=== PATIENT | male | born 1990 | race Caucasian/White ===

== ENCOUNTER 2017-12-02 13:46 | Inpatient (IN) ==
[2017-12-02] MEDS ORDERED: SALINE FLUSH 10ml SYRINGE IVF PRN (13:59)
--- NOTE | 2017-12-02 14:01 | Emergency Department Report ---
General Adult HPI - General Stated complaint: need sist removed Time Seen by Provider: 12/02/17 13:58 Source: patient, family Mode of arrival: ambulatory Limitations: no limitations - History of Present Illness HPI narrative: Patient is a 27-year-old male seen in the emergency department for evaluation of infected pilonidal cyst. Patient was originally evaluated on Thursday 4 days ago, at that time patient had pain and swelling to the gluteal fold. Pilonidal cyst/abscess was opened in the emergency department with purulent material drained. Cavity was washed out, patient was started on ciprofloxacin and clindamycin due to MRSA. Patient continuing to have pain, fevers getting worse. Patient contacted the surgeon who did his knee surgery 2 weeks ago, who is concerned about seeding of material in the knee. He recommend he come back to the ER for evaluation. On arrival patient is tachycardic at 125 with purulent drainage. - Related Data Home Medications Medication Instructions Recorded Confirmed Aspirin 81 mg PO DAILY 11/28/17 12/02/17 Ciprofloxacin [Cipro 500 mg] 500 mg PO BID 12/02/17 12/02/17 Clindamycin [Cleocin] 300 mg PO QID 12/02/17 12/02/17 Oxycodone/Apap 10/325 [Percocet 1 - 2 tab PO Q6H PRN 12/02/17 12/02/17 10/325] Allergies Allergy/AdvReac Type Severity Reaction Status Date / Time azithromycin [From Zithromax] Allergy Rash Verified 12/02/17 14:13 Review of Systems Constitutional: Reports: fever. Denies: chills, weakness Eyes: Denies: eye pain ENT: Denies: ear pain, throat pain, dental pain Cardiovascular: Denies: chest pain, palpitations, dyspnea on exertion Respiratory: Denies: cough, dyspnea, wheezes Gastrointestinal: Denies: abdominal pain, nausea, vomiting Genitourinary: Denies: dysuria, frequency Musculoskeletal: Denies: back pain Neurological: Denies: headache Psychiatric: Denies: anxiety PFSH Patient Stated Medical History Asthma Yes: A CHILD MRSA Yes Clinic Medical History (Last Updated 11/28/17 @ 11:30 by Hoda Ocampo LPN) Asthma (Resolved Medical) Surgical History: *Right Knee surgery x 5. *Left Knee surgery x 2 Family History: Family History (Last Updated 11/28/17 @ 11:31 by Hoda Ocampo LPN) Mother High blood pressure Father Sleep apnea - Social History Smoking status: Never smoker Substance use type: does not use Alcohol intake: current Alcohol intake frequency: holidays/special occasions only Physical Exam - Limitations Limitations: no limitations - General General appearance: alert - Eye Eye exam: Present: PERRL, EOMI - ENT ENT exam: Present: normal oropharynx - Neck Neck exam: Present: trachea midline - Chest Chest inspection: Present: symmetric chest wall rise. Absent: tenderness - Respiratory Respiratory exam: Present: normal lung sounds bilaterally. Absent: respiratory distress, wheezes, stridor - Cardiovascular Cardiovascular exam: Present: normal rhythm, tachycardia, normal heart sounds - Abdominal Exam Abdominal exam: Present: soft, normal bowel sounds. Absent: distention, tenderness - Rectal Exam Rectal exam: Present: other (patient has large area of erythema with purulent material draining from 2 spots as well as incision line from previous I and D with increasing erythema) - Skin Skin exam: Present: warm, dry - Neurological Exam Neurological exam: Present: alert, oriented X3 - Psychiatric Psychiatric exam: Present: normal affect, normal mood Course Vital Signs Temperature 100.0 F 12/02/17 13:55 Pulse Rate 124 H 12/02/17 13:55 Respiratory Rate 20 12/02/17 13:55 Blood Pressure 127/64 12/02/17 13:55 Pulse Oximetry 98 12/02/17 13:55 Temperature 100.0 F 12/02/17 13:55 Pulse Rate 124 H 12/02/17 13:55 Respiratory Rate 20 12/02/17 13:55 Blood Pressure 127/64 12/02/17 13:55 Pulse Oximetry 98 12/02/17 13:55 Medical Decision Making - MDM Narrative Medical decision making narrative: Discuss case with Dr. Fierro, he would request admit to the hospitalist service for IV antibiotics and by mouth he will evaluate. Discuss case with Dr. Hogan, she will admit, start Zosyn, vancomycin - Lab Data Lab results reviewed: Yes: I reviewed the patient's lab results. Result diagrams: 12/02/17 14:08 12/02/17 14:08 Lab Results 12/02/17 Range/Units 14:08 WBC 10.6 (4.5-11.0) T/MM3 RBC 4.37 L (4.50-5.90) M/MM3 Hgb 13.2 L (13.5-17.5) GM/DL Hct 39.2 L (41-53) % MCV 89.7 (80-100) UM3 MCH 30.2 (26-34) UUG MCHC 33.7 (31-37) GM/DL RDW Std Deviation 37.6 (36.9-50.2) FL Plt Count 272 (130-400) T/MM3 MPV 9.0 L (9.4-12.4) UM3 Immature Gran % (Auto) 0.2 (0.0-0.5) % Neut % (Auto) 67.7 H (33-66) % Lymph % (Auto) 22.8 L (23-45) % [place] % (Auto) 6.6 (0-9.0) % Eos % (Auto) 2.5 (0-4) % Baso % (Auto) 0.2 (0-2) % Neut # (Auto) 7.2 (1.8-7.7) T/MM3 Lymph # (Auto) 2.4 (1-4.8) T/MM3 [place] # (Auto) 0.7 (0-0.8) T/MM3 Eos # (Auto) 0.3 (0-0.5) T/MM3 Baso # (Auto) 0.0 (0-0.2) T/MM3 Abs Immat Gran (auto) 0.02 (0.00-0.03) T/MM3 Disposition Clinical Impression: Infected pilonidal cyst, Abscess Disposition: 02 To [facility] Condition: Stable Prescriptions: No Action Aspirin 81 mg PO DAILY Oxycodone/Apap 10/325 [Percocet 10/325] 1 - 2 tab PO Q6H PRN PRN Reason: Pain Clindamycin [Cleocin] 300 mg PO QID Ciprofloxacin [Cipro 500 mg] 500 mg PO BID Time of Disposition: 14:23 - Seen By: physician
[2017-12-02] MEDS ORDERED: LEVOFLOXACIN PB 750 MG/150 ML BAG IV SCH (14:15)
[2017-12-02] MEDS: NS 1,000 ML IV SCH ×2 (14:18→22:43)
[2017-12-02] MEDS ORDERED: PIPERACILLIN/TAZOBACTAM 4.5 GM in NS 100 ML IV ONE (14:19)
--- NOTE | 2017-12-02 15:04 | History & Physical Report ---
History of Present Illness Date: 12/02/17 Chief complaint: Fever, Pilonidal cyst drainage HPI: Tucker is a 27 yr old male who presents to the emergency room today for evaluation of pilonidal cyst. He initially was seen in the emergency room on Thursday11/28/17 at which time. I&D was performed revealing purulent drainage. He was started on oral Cipro and clindamycin and discharged home. For the next 4 days he continued to have fevers with ongoing drainage. Today he returned to the ER for re-evaluation. On arrival he was found to be tachycardic with a heart rate of 124, temperature 100.0, otherwise unremarkable. Basic labs were obtained CBC overall unremarkable. Chemistry panel reveled sodium of 145, otherwise negative. Venous lactate 1.1. Area of Erythema at the gluteal fold has increased significantly compared to 4 days ago. Given worsening symptoms, failed outpatient treatment, Hospitalist services were contacted and accepted patient for inpatient admission. Dr. Fierro was contacted for further surgical evaluation and recommendations. Patient had surgery to right knee on 11/21/17 under the care of Dr Gómez Shah in [place]. He reports he did have some donor tissue placed however no metal placement. Review of Systems - Constitutional Constitutional: Present: chills, fever(s), headache(s) - Musculoskeletal Musculoskeletal: Present: other (Pain at the gluteal fold location) Past Medical History Medical History: Medical History (Last Updated 12/02/17 @ 15:07 by Vanessa Ramirez APRN) Asthma Medical History Updates: Hx MRSA in toe infection Surgical History: *Right Knee surgery x 5. 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 Postoperatively Medications Home Medications Medication Instructions Recorded Confirmed Type Aspirin 81 mg PO DAILY 11/28/17 12/02/17 History Ciprofloxacin [Cipro 500 mg] 500 mg PO BID 12/02/17 12/02/17 History Clindamycin [Cleocin] 300 mg PO QID 12/02/17 12/02/17 History Oxycodone/Apap 10/325 [Percocet 1 - 2 tab PO Q6H PRN 12/02/17 12/02/17 History 10/325] Allergies Allergy/AdvReac Type Severity Reaction Status Date / Time azithromycin [From Zithromax] Allergy Rash Verified 12/02/17 14:13 Exam Vital Signs: Temperature 100.3 F 12/02/17 14:33 Pulse Rate 110 H 12/02/17 14:33 Respiratory Rate 16 12/02/17 14:33 Blood Pressure 130/76 12/02/17 14:33 Pulse Oximetry 98 12/02/17 14:33 - Constitutional Present: no acute distress, well nourished, well developed - Routine HEENT Exam Eye: Present: EOMI ENT: Present: mucous membranes moist, dentition normal - Routine Respiratory Exam Present: CTA bilaterally. Absent: wheezes - Routine Cardiovascular Exam Present: RRR. Absent: murmur - Routine Abdominal Exam Present: soft, normoactive bowel sounds, non distended. Absent: tenderness - Routine Extremities Exam Present: normal capillary refill - Routine Back/Spine/Pelvis Exam Back image: 1 - Erythema, purulent drainage - Routine Skin Exam Present: intact, erythema, dry, warm - Routine Neurological Exam Present: alert, oriented X3, CN II-XII intact, moving all extremities - Routine Psychiatric Exam Present: normal affect, normal thought process, cooperative Results - Labs CBC & Chem 7: 12/02/17 14:08 12/02/17 14:08 Assessment and Plan (1) Infected pilonidal cyst Current visit: Yes Status: Acute Assessment and Plan: Impression Infected pilonidal cyst- failed outpatient treatment Tachycardia Hypernatremia Status post right knee surgery Hx of MRSA infection Hx Asthma as a child Plan Admit patient as an inpatient given worsening pilonidal cyst with drainage despite outpatient treatment. Venous lactate was negative initially. Blood cultures were obtained. Patient was started on Zosyn in the emergency room Will continue with IV Zosyn and vancomycin for antimicrobial coverage. Hx of MRSA infection NPO currently until evaluated by Dr Fierro Consultation placed to Dr Fierro for further surgical evaluation and recommendations. NS at 125 ml/hr for hydration Percocet or Morphine as needed for pain. Will need to also control post-op right knee pain Zofran available as needed for nausea It appears patient is taking aspirin 81 mg daily at home-this may be postoperative anticoagulation. Will resume once ongoing plan is confirmed. SCD for DVT prophylaxis Repeat venous lactate at 1830 as per sepsis protocol, we'll recheck CBC and BMP tomorrow morning to follow blood counts, renal function and electrolytes Will discuss further orders and plan of care with attending, Dr. Mejia At time of discharge medical care will return to primary care provider, PCP in [place] or Orthopedics Dr Gómez Shah DVT Prophylaxis: SCD's Resuscitation Status: Full Code - Time spent with patient Time with patient PN: 50 minutes - Physician Narrative Physician: Isabel Mejia MD Narrative: Date: 12/02/17 Time: 1639 Mr. Hutton was interviewed and examined by me. Mom and dad are both in the room. He is resting comfortably. He is having some pain on his coccyx area. He has been having intermittent fever as well as chills. He denies lightheadedness or dizziness. He denies any problems with shortness of breath, tips exertion, PND or orthopnea. He denies any chest pain, pressure or tightness. He denies palpitations. He denies any nausea or vomiting. He has had some constipation due to the pain pills from his knee but he has started taking senna with improvement. He denies any black tarry stools or bloody stools. He denies any genitourinary symptoms. He does have minimal pain on that right knee. He is in a groin to ankle splint and the right knee has an reynaldo wrap around it. Dr. Shah recommended no one remove this until seen in follow-up by himself. The parents were concerned that the name may be a source of infection but I reassured them that it is unlikely to have 2 sources of infection and we clearly have one source identified. I do not feel any major swelling in that right knee through the bandage. His pain in that knee is only minimal compared to the pain in his coccyx. PE: Gen: alert and oriented. NAD Skin: warm and dry HEENT: NC/AT PERRL, EOMI, Sclera, lids and conjunctiva wnl. MMM. OP clear. Neck: No JVD, Carotids 2+ without bruits Lungs: clear. No rales, rhonchi or wheezes CV: regular. No murmur, rub or gallop Abd: soft. +BS. NT/ND MS: Trace edema in distal RLE. Good strength and ROM in left LE and bilateral UEs. Neuro: No focal deficits Psy: Appropriate mood and affect Assessment and Plan: (1) Infected pilonidal cyst - failed outpatient treatment - Associated Tachycardia - Vanco and zosyn initiated - Blood Cx drawn - Dr. Fierro to see this evening, possible I&D today - IV morphine for pain management. (2) Hypernatremia -Likely due to dehydration -IVF (3) Status post right knee surgery -Appears stable -On ASA for post op protection-hold for now but resume helen (4) Hx of MRSA infection (5) Prophylaxis -SCDs At time of discharge medical care will return to primary care provider, PCP in [place] and Orthopedics Dr Gómez Shah Pt discussed with Vanessa Ramirez APRN. Plan discussed and developed together. I independently interviewed and examined pt. My documentation is above. Hospital Course Summary Disclaimer: The visit summary below is not to be considered part of the above Progress Note. Hospital Course: Impression Infected pilonidal cyst- failed outpatient treatment Tachycardia Hypernatremia Status post right knee surgery Hx of MRSA infection Hx Asthma as a child Plan Admit patient as an inpatient given worsening pilonidal cyst with drainage despite outpatient treatment. Venous lactate was negative initially. Blood cultures were obtained. Patient was started on Zosyn in the emergency room Will continue with IV Zosyn and vancomycin for antimicrobial coverage. Hx of MRSA infection NPO currently until evaluated by Dr Fierro Consultation placed to Dr Fierro for further surgical evaluation and recommendations. NS at 125 ml/hr for hydration Percocet or Morphine as needed for pain. Will need to also control post-op right knee pain Zofran available as needed for nausea It appears patient is taking aspirin 81 mg daily at home-this may be postoperative anticoagulation. Will resume once ongoing plan is confirmed. SCD for DVT prophylaxis Repeat venous lactate at 1830 as per sepsis protocol, we'll recheck CBC and BMP tomorrow morning to follow blood counts, renal function and electrolytes Will discuss further orders and plan of care with attending, Dr. Mejia At time of discharge medical care will return to primary care provider, PCP in [place] or Orthopedics Dr Gómez Shah
[2017-12-02 15:07] VITALS: BMI 34.4
[2017-12-02] MEDS ORDERED: MORPHINE SULFATE 2mg INJ IVP PRN (15:14)
[2017-12-02] MEDS ORDERED: ONDANSETRON 4 MG/2 ML INJECTION IVP PRN ×2 (15:14→21:37)
[2017-12-02] MEDS ORDERED: VANCOMYCIN - PHARMACY CONSULT MC ONE (16:44)
--- NOTE | 2017-12-02 17:15 | Pharmacy Consult-Antibiotics ---
Pharmacy Consult-Vancomycin - Laboratory Information WBC 10.6 T/MM3 (4.5-11.0) 12/02/17 14:08 BUN 12.0 MG/DL (9-20) 12/02/17 14:08 Creatinine 0.8 mg/dL (0.8-1.5) 12/02/17 14:08 - Consult Information Consult noted by Dr Mejia to start vancomycin therapy for Mr Hutton. Mr Hutton is 27 years old and weighs 135.3kg. He has excellent renal function ( Crcl calulated at 200 ml/min). ER vancomycin 2000mg dose given at 1546 today. Will start vancomycin 1500mg IV q6h at 2300 tonight. A trough is ordered tomorrow afternoon, will evaluate an adjust dose if needed. Thank you.
--- NOTE | 2017-12-02 17:51 | General Surgery Consult Note ---
Consult date: 12/02/17 Attending Physician: Isabel Mejia MD [facility] Clinic Medical History (Last Updated 12/02/17 @ 15:07 by Vanessa Ramirez APRN) Asthma (Resolved Medical) Medical History Updates: Hx MRSA in toe infection Surgical History: *Right Knee surgery x 5. *Left Knee surgery x 2 Family History: Family History (Last Updated 11/28/17 @ 11:31 by Hoda Ocampo LPN) Mother High blood pressure Father Sleep apnea - Social History Smoking status: Never smoker Substance use type: does not use Alcohol intake: current Alcohol intake frequency: holidays/special occasions only Current occupational status: employed ([employer]) Medications Home Medications Medication Instructions Recorded Confirmed Type Aspirin 81 mg PO DAILY 11/28/17 12/02/17 History Ciprofloxacin [Cipro 500 mg] 500 mg PO BID 12/02/17 12/02/17 History Clindamycin [Cleocin] 300 mg PO QID 12/02/17 12/02/17 History Oxycodone/Apap 10/325 [Percocet 1 - 2 tab PO Q6H PRN 12/02/17 12/02/17 History 10/325] Allergies Allergy/AdvReac Type Severity Reaction Status Date / Time azithromycin [From Zithromax] Allergy Rash Verified 12/02/17 14:13 Review of Systems 10-point ROS: negative except for HPI and the following: - General General: Present: fever - Musculoskeletal Musculoskeletal: Present: joint pain (recent knee surgery), other (Knee brace on right leg) - Vital Signs Last Vital Signs Temp 99.1 F 12/02/17 15:04 Pulse 111 H 12/02/17 15:04 Resp 16 12/02/17 15:04 BP 127/65 12/02/17 15:04 Pulse Ox 99 12/02/17 15:04 - Laboratory Result Diagrams: 12/02/17 14:08 12/02/17 14:08
[2017-12-02] MEDS ORDERED: BUPIVACAINE 0.25%/EPI 1:200,000 30ml SDV ONE (18:50)
--- NOTE | 2017-12-02 20:09 | Anesthesia Preoperative Report ---
Anesthesia Preoperative Record - Date and Time Date: 12/02/17 Preoperative Diagnosis: Pilonidal Cyst Proposed Procedure: Excision of Pilonidal cyst NPO Since Date: 12/02/17 NPO Since Time: 07:00 Allergies/Adverse Reactions: Allergies Allergy/AdvReac Type Severity Reaction Status Date / Time azithromycin [From Zithromax] Allergy Rash Verified 12/02/17 14:13 - Vital Signs Vital Signs: Temperature 99.1 F 12/02/17 15:04 Pulse Rate 105 H 12/02/17 15:45 Respiratory Rate 20 12/02/17 15:45 Blood Pressure 127/65 12/02/17 15:04 Pulse Oximetry 97 12/02/17 15:45 Height and Weight: Height 1.98 m Weight 135.3 kg Body Mass Index 34.4 - Medications Inpatient Medications: Current Medications Sodium Chloride (Normal Saline) 1,000 mls @ 125 mls/hr IV .Q8H ANASTACIA Last Infusion: 12/02/17 17:46 Dose: 125 mls/hr Piperacillin Sod/Tazobactam (Sod 3.375 gm/ Sodium Chloride) 100 mls @ 200 mls/ hr IV Q6H ANASTACIA Vancomycin HCl 1,500 mg/ (Sodium Chloride) 500 mls @ 300 mls/hr IV Q6H ANASTACIA Morphine Sulfate (Morphine Sulfate Inj) 2 mg IVP Q3-4HR PRN PRN Reason: Pain Ondansetron HCl (Zofran) 4 mg IVP Q6H PRN PRN Reason: Nausea &/or vomiting Oxycodone/Acetaminophen (Percocet 10/325) 1 - 2 tab PO Q6H PRN PRN Reason: Pain Sodium Chloride (Iv Flush) 10 - 80 ml IVF PRN PRN PRN Reason: Flushing Last Admin: 12/02/17 14:03 Dose: 10 ml Home Medications: Home Medications Medication Instructions Recorded Confirmed Type Aspirin 81 mg PO DAILY 11/28/17 12/02/17 History Ciprofloxacin [Cipro 500 mg] 500 mg PO BID 12/02/17 12/02/17 History Clindamycin [Cleocin] 300 mg PO QID 12/02/17 12/02/17 History Oxycodone/Apap 10/325 [Percocet 1 - 2 tab PO Q6H PRN 12/02/17 12/02/17 History 10/325] Is Patient on Beta Katty?: No - Medical History Respiratory: Reports: Asthma ( A CHILD) - Surgical History Musculoskeletal Surgery/Tx: Reports: Knee Arthroscopy (LEFT,RIGHT) Anesthesia Reactions: None Hx Family Anesthesia Reaction: No History of Motion Sickness: No - Social History Smoking Status: Never smoker Hx Chewing Tobacco Use: No Second Hand Exposure: No Substance Use Type: does not use Alcohol Intake: current Alcohol Intake Frequency: holidays/special occasions only - Pertinent Findings EKG: Sinus Rhythm - Physical Exam Respiratory Exam: Present: lungs clear Cardiovascular Exam: Present: regular rate and rhythm - Airway Assessment Mallampati Score: II TMD: 3 Fingerbreadths Neck Extension: good Overall Assessment: no airway concerns - ASA ASA Score: 2 - Plan Anesthesia: General Inhalation Gases - Discussion Discussion: Discussed risks/options/alternatives of anesthesia and questions answered. Patient consents. Nursing pain assessment noted. Present for Discussion: family member Attestation Statement: Prior to the delivery of any anesthetic medication, I examined the patient, developed the plan, obtained the patient's consent and discussed the risk and benefits of the procedure with the patient/guardian. - Additional Information Seen by Anesthesia: Yes
[2017-12-02] MEDS ORDERED: FentaNYL 250 MCG/5 ML INJECTION ONE (20:47)
[2017-12-02] MEDS ORDERED: BUPIVACAINE 0.25%/EPI 1:200,000 30ml SDV ID ONE (21:10)
[2017-12-02] MEDS: PIPERACILLIN/TAZOBACTAM 3.375 GM in NS 100 ML IV SCH (21:10)
[2017-12-02] MEDS ORDERED: KETOROLAC 30 MG/ML INJECTION IVP PRN (21:21)
[2017-12-02] MEDS ORDERED: IBUPROFEN 800 MG TABLET PO PRN (21:21)
[2017-12-02] MEDS ORDERED: SUGAMMADEX 200mg/2ml INJECTION IVP ONE (21:30)
[2017-12-02] MEDS ORDERED: DEXAMETHASONE 4 MG/ML INJECTION ONE (21:30)
[2017-12-02] MEDS ORDERED: ONDANSETRON 4 MG/2 ML INJECTION ONE (21:30)
[2017-12-02] MEDS ORDERED: FentaNYL 100 MCG/2 ML INJECTION IVP PRN (21:37)
[2017-12-02] MEDS ORDERED: METOCLOPRAMIDE 10mg/2ml INJECTION IVP PRN (21:37)
[2017-12-02] MEDS ORDERED: HYDROMORPHONE 2 MG/ML INJECTION IVP PRN (21:37)
--- NOTE | 2017-12-02 21:47 | General Surgery Procedure Note ---
Date of Procedure: 12/02/17 Surgeon: [employer] Supervisor: Bill Alejandra APRN Postoperative Diagnosis: Infected Pilonidal disease with abscess Procedure: Incision, drainage and debridement of infected pilonidal cyst disease Estimated Blood Loss: See Anesthesia Record.
[2017-12-02] MEDS: MORPHINE SULFATE 4mg INJECTION IVP PRN (22:52)
[2017-12-03] MEDS: Oxycodone/Apap 10/325 1 TAB PO PRN ×4 (01:53→23:32)
[2017-12-03] MEDS: PIPERACILLIN/TAZOBACTAM 3.375 GM in NS 100 ML IV SCH ×4 (03:01→23:32)
--- NOTE | 2017-12-03 07:01 | Consultation ---
DATE OF CONSULTATION 12/02/2017 FINDINGS Mr. Hutton is a 27-year-old gentleman I was asked to see today as a new patient as a result of a developing abscess/cellulitis involving the cleft of his buttocks. The patient states that earlier this month he underwent knee surgery in [place]. 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 The patient states that they had placed some cadaver cartilage within his knee. He had returned back here to [place] to recover from his surgery with his parents who live locally. The patient states that about 5-6 days ago he began to notice some redness involving the cleft of his buttocks. He states that he began to develop some fever and chills and increasing discomfort. He states that over the course of the weekend he had presented to our emergency room facility and underwent incision and drainage of a pilonidal cyst from the buttock region. He was discharged to home on antibiotics. The patient states that it drained for a day or two and then "stopped draining." Once the abscess cavity began to "stop draining" it became more red and painful in nature. He states that he once again began to develop a fever. He re-presented therefore to the emergency room earlier today for further evaluation. The patient was found to febrile, tachycardic in nature and had developed increasing redness and abscess involving the cleft of the buttocks and was subsequently admitted for further evaluation. PAST MEDICAL HISTORY Performed by my nurse practitioner, Bill Alejandra. PAST SURGICAL HISTORY Performed by my nurse practitioner, Bill Alejandra. MEDICATIONS Performed by my nurse practitionerBill. ALLERGIES Performed by my nurse practitionerBill. SOCIAL HISTORY Performed by my nurse practitionerBill. FAMILY HISTORY Performed by my nurse practitionerBill. REVIEW OF SYSTEMS Performed by my nurse practitionerBill. PHYSICAL EXAMINATION Mr. Hutton was seen earlier this evening on rounds. He did not appear to be in acute distress. T-max 100.3. Pulse 105. Respirations 20. Blood pressure 127/65 , SaO2 97% on room air. HEENT: Normocephalic. Pupils are equal, round and reactive to light and accommodation. NECK: Supple without lymphadenopathy. CHEST: Clear to auscultation bilaterally. HEART: Regular rate and rhythm. Normal S1 and S2 without gallops, murmurs or clicks. ABDOMEN: Palpation of the abdomen reveals it to be soft and nontender. I do not appreciate any evidence for hepatosplenomegaly or abnormal masses. EXTREMITIES: Without clubbing, cyanosis, or edema. NEURO: Cranial nerves II-XII grossly intact. Patient is without focal motor or sensory deficits. BUTTOCKS: Attention was focused to the area of concern. He does have a small 4 -5 mm incision involving the cephalad aspect of the cleft of the buttocks. With pressure applied, one can see some purulent drainage coming forth from this area. Unfortunately, the patient has marked erythema that extends perhaps 8-10 cm above the cleft of the buttocks involving the lumbar region. There is marked erythema and induration overlying this area of erythema. Palpation also reveals a component of discomfort and underlying fluctuance. LABORATORY/RADIOGRAPH EVALUATION The patient had a CBC earlier through the emergency room and his white count was 10.6. Hemoglobin was 13.2. Plasma lactate was not found to be markedly elevated at 0.7. CMP was obtained and his sodium was 145. ALT was 66. Blood cultures were obtained today upon admission. Results are pending. ASSESSMENT 27-year-old gentleman with an abscess involving lumbar region. A history for MRSA infection. PLAN I agree with the current care of this patient. He was admitted earlier today and begun on broad-spectrum antibiotics consisting of Zosyn and vancomycin considering his history for MRSA infection in the past. It was my recommendation to the patient and his family that this evening he be taken to the operative suite and undergo a more formal incision and drainage of this abscess cavity involving the lumbar region and cephalad aspect of the cleft of his buttocks. If, upon exploration of this abscess, he is found to have underlying necrotic tissue then excisional surgical debridement will be carried out accordingly. I did discuss with the patient and his family what incision and drainage of the abscess would entail as well as exploration of the wound with possible excisional surgical debridement. The patient understood and wished to proceed as stated above. BOB
--- NOTE | 2017-12-03 08:50 | Anesthesia Postoperative Note ---
- Date and Time Date: 12/03/17 Time: 08:50 - Status Patient Participated in Evaluation: Patient Participated in Person Vital Signs: Temperature 97.7 F 12/03/17 04:52 Pulse Rate 74 12/03/17 04:52 Respiratory Rate 18 12/03/17 04:52 Blood Pressure 125/79 12/03/17 04:52 Pulse Oximetry 99 12/03/17 04:52 Respiratory Function: Airway Patent Cardiovascular Function: Regular Pulse EKG: Sinus Rhythm Mental Status: Alert and Oriented Pain Intensity: 3 Hydration: Taking PO Fluids Complications During Recover: None Apparent - Follow-Up Instructions Instructions: Per Surgeon
[2017-12-03] MEDS ORDERED: SUCCINYLCHOLINE 20mg/mL 10mL INJECTION ONE (08:58)
[2017-12-03] MEDS ORDERED: PROPOFOL 20 ML ONE (08:58)
[2017-12-03] MEDS ORDERED: ROCURONIUM 50 MG/5 ML INJECTION IVP ONE (08:58)
--- NOTE | 2017-12-03 10:50 | General Surgery Progress Note ---
Subjective Patient reports: feels better, pain is less, tolerating a regular diet, afebrile (T-max was 100.3 before surgery yesterday,) Narrative: Wound clinic removed packing and placed Aquacel this am, he states it stung a little, but was "not too bad." - Vital Signs Last Vital Signs Temp 97.7 F 12/03/17 04:52 Pulse 74 12/03/17 04:52 Resp 18 12/03/17 04:52 BP 125/79 12/03/17 04:52 Pulse Ox 99 12/03/17 04:52 - Laboratory Result Diagrams: 12/03/17 04:01 12/03/17 04:01 - Microbiogy Microbiology 12/02/17 21:20 Surgical Site Gram Stain - Final 12/02/17 21:20 Surgical Site Surgical Culture - Preliminary Culture Initiated - Results Pending - Abnormal Exam Skin: Post pilonidal cystectomy Additional Abnormal Findings: Knee brace right leg - Normal Exam General: awake, alert, oriented, no acute distress Cardiovascular: regular rate Respiratory: no labored breathing Abdominal: soft Psychiatric: normal affect Assessment and Plan (1) Infected pilonidal cyst Current Visit: Yes Status: Acute Plan: Continue IV ABX. Hospital Course Summary Disclaimer: The visit summary below is not to be considered part of the above Progress Note. Hospital Course: Impression Infected pilonidal cyst- failed outpatient treatment Tachycardia Hypernatremia Status post right knee surgery Hx of MRSA infection Hx Asthma as a child Plan Admit patient as an inpatient given worsening pilonidal cyst with drainage despite outpatient treatment. Venous lactate was negative initially. Blood cultures were obtained. Patient was started on Zosyn in the emergency room Will continue with IV Zosyn and vancomycin for antimicrobial coverage. Hx of MRSA infection NPO currently until evaluated by Dr Fierro Consultation placed to Dr Fierro for further surgical evaluation and recommendations. NS at 125 ml/hr for hydration Percocet or Morphine as needed for pain. Will need to also control post-op right knee pain Zofran available as needed for nausea It appears patient is taking aspirin 81 mg daily at home-this may be postoperative anticoagulation. Will resume once ongoing plan is confirmed. SCD for DVT prophylaxis Repeat venous lactate at 1830 as per sepsis protocol, we'll recheck CBC and BMP tomorrow morning to follow blood counts, renal function and electrolytes Will discuss further orders and plan of care with attending, Dr. Mejia At time of discharge medical care will return to primary care provider, PCP in [place] or Orthopedics Dr Gómez Shah
--- NOTE | 2017-12-03 11:16 | Progress Note ---
- Date 12/03/17 Subjective: Tucker is a 27 yr old male who presents to the emergency room today for evaluation of pilonidal cyst. He initially was seen in the emergency room on Thursday11/28/17 at which time. I&D was performed revealing purulent drainage. He was started on oral Cipro and clindamycin and discharged home. For the next 4 days he continued to have fevers with ongoing drainage. Today he returned to the ER for re-evaluation. On arrival he was found to be tachycardic with a heart rate of 124, temperature 100.0, otherwise unremarkable. Basic labs were obtained CBC overall unremarkable. Chemistry panel reveled sodium of 145, otherwise negative. Venous lactate 1.1. Area of Erythema at the gluteal fold has increased significantly compared to 4 days ago. Given worsening symptoms, failed outpatient treatment, Hospitalist services were contacted and accepted patient for inpatient admission. Dr. Fierro was contacted for further surgical evaluation and recommendations. Patient had surgery to right knee on 11/21/17 under the care of Dr Gómez Shah in [place]. He reports he did have some donor tissue placed however no metal placement. Mr. Hutton underwent I&D of the wound last evening. This morning he is having the wound dressed with the wound and skin care team. He is feeling well and denies any fever or chills. He has been afebrile since last evening around 10 o' clock. He denies any lightheadedness or dizziness. He denies any shortness of breath. He denies any chest pain or palpitations. He denies any nausea or vomiting. He has had a bowel movement yet but he is passing flatus. He took a splint off his right lower extremity last night so he could sleep a little better. He denies any significant pain in that leg this morning. It remains dressed in reynaldo bandage. Objective Vital signs: Temperature 97.7 F 12/03/17 04:52 Pulse Rate 74 12/03/17 04:52 Respiratory Rate 18 12/03/17 04:52 Blood Pressure 125/79 12/03/17 04:52 Pulse Oximetry 99 12/03/17 04:52 Height/Weight/BMI: Height 1.98 m Weight 136.8 kg Body Mass Index 34.4 Comments: Gen: alert and oriented. NAD Skin: warm and dry HEENT: NC/AT PERRL, EOMI, Sclera, lids and conjunctiva wnl. MMM. OP clear. Neck: No JVD, Carotids 2+ without bruits Lungs: clear. No rales, rhonchi or wheezes CV: regular. No murmur, rub or gallop Abd: soft. +BS. NT/ND MS: Trace edema in distal RLE. Good strength and ROM in left LE and bilateral UEs. Right lower extremity wrapped with reynaldo bandage Neuro: No focal deficits Psy: Appropriate mood and affect Results - Labs CBC & Chem 7: 12/03/17 04:01 12/03/17 04:01 Microbiology Results: Microbiology 12/02/17 21:20 Surgical Site Gram Stain - Final 12/02/17 21:20 Surgical Site Surgical Culture - Preliminary Culture Initiated - Results Pending Assessment and Plan (1) Infected pilonidal cyst Current visit: Yes Status: Acute Assessment and Plan: Assessment and Plan: (1) Infected pilonidal cyst - failed outpatient treatment - Associated Tachycardia - Vanco and zosyn - Blood Cx pending - Wound Cx growing gm + cocci - S/P I&D last evening by Dr. Fierro - IV fentanyl, dilaudid, morphine, oxycodone and ibuprofen ordered for pain management. (2) Hypernatremia -Likely due to dehydration -continue IVF (3) Status post right knee surgery -Appears stable -On ASA for post op protection-hold for now but resume helen (4) Hx of MRSA infection (5) Prophylaxis -SCDs - Physician Narrative Narrative: Date: 12/03/17 Time: 1113 Hospital Course Summary Disclaimer: The visit summary below is not to be considered part of the above Progress Note. Hospital Course: Impression Infected pilonidal cyst- failed outpatient treatment Tachycardia Hypernatremia Status post right knee surgery Hx of MRSA infection Hx Asthma as a child Plan Admit patient as an inpatient given worsening pilonidal cyst with drainage despite outpatient treatment. Venous lactate was negative initially. Blood cultures were obtained. Patient was started on Zosyn in the emergency room Will continue with IV Zosyn and vancomycin for antimicrobial coverage. Hx of MRSA infection NPO currently until evaluated by Dr Fierro Consultation placed to Dr Fierro for further surgical evaluation and recommendations. NS at 125 ml/hr for hydration Percocet or Morphine as needed for pain. Will need to also control post-op right knee pain Zofran available as needed for nausea It appears patient is taking aspirin 81 mg daily at home-this may be postoperative anticoagulation. Will resume once ongoing plan is confirmed. SCD for DVT prophylaxis Repeat venous lactate at 1830 as per sepsis protocol, we'll recheck CBC and BMP tomorrow morning to follow blood counts, renal function and electrolytes Will discuss further orders and plan of care with attending, Dr. Mejia At time of discharge medical care will return to primary care provider, PCP in [place] or Orthopedics Dr Gómez Shah
--- NOTE | 2017-12-03 11:36 | Wound Care Progress Note ---
Wound Center Progress Note: Pt seen this AM for wound consult, at this time pt has guaze and ABD in place, which is removed, wound measured 10 x 1 x 2, wound bed is dark red and somewhat mushy. Aqucell AG placed in wound bed and covered with a mepilex. After leaving room Dr Fierro informed me that he would like a wound vac place. Nurse information and at this time wound vac ordered. Will return later to place.
[2017-12-03] MEDS: MORPHINE SULFATE 4mg INJECTION IVP PRN (12:31)
--- NOTE | 2017-12-03 13:12 | Operative Note ---
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 POSTOPERATIVE DIAGNOSIS Abscess cavity involving cephalad aspect of buttocks and lumbar region secondary to pilonidal cyst disease. PROCEDURE Extensive pilonidal cystectomy with incision and drainage of abscess. ANESTHESIA TIVA/local. BRIEF HISTORY/INDICATIONS Mr. Hutton is a 27-year-old gentleman who presented earlier today to our emergency room as a result of a complicated bout of pilonidal cyst disease. The patient was seen in our ER facility over the weekend and underwent an incision and drainage and was placed on oral antibiotics. Unfortunately, his infection continued to increase over the last couple of days. He was admitted to the hospital and placed on broad-spectrum antibiotics. Upon examination he was found to have a large abscess cavity that originated within the cephalad aspect of the cleft of the buttocks and extended onto the lower lumbar region. It was recommended to the patient that he undergo surgical intervention as a result of the above indications. For completeness, please refer to notes included in the patient's chart. DESCRIPTION OF PROCEDURE After informed consent was obtained, the patient was brought to the operative suite and placed on the table in left lateral decubitus position. The patient subsequently underwent total intravenous anesthesia by the nurse tag stringer per my request. The area of concern was then prepped and draped in sterile fashion. Formal time-out was then completed. Next, 0.25% Marcaine with epinephrine was injected adjacent to a small opening that was present along the cleft of the buttocks. The Marcaine was then continued to be injected in a cephalad fashion up onto the lower lumbar region overlying the area of marked erythema and fluctuance. The cleft of the buttocks was inspected and the patient was found to have obvious pilonidal cyst disease. One could see several small pore-like openings with comedo-like structures within the depth of these pore-like openings. Several of these small openings had yuki purulent material draining forth from them. An elliptical incision was then made encompassing the visible pilonidal cyst disease. This began upon the midportion of the cleft of the buttocks and was extended up onto the lumbar region overlying the abscess cavity. Yuki purulent material was then obtained as one entered into the abscess cavity. Anaerobic and aerobic bacterial cultures were obtained. One could see some hair within the deep subcutaneous tissues, again consistent with that of pilonidal cyst disease. This hair was removed. Next, a formal pilonidal cystectomy was performed and all chronically inflamed and infected subcutaneous tissue was excised. Meticulous hemostasis was then obtained with the use of electrocautery. The wound was then irrigated. The tissue that was excised was submitted for pathologic evaluation. Attention was then focused back to the wound. The wound was again inspected and further hemostasis obtained with the use of electrocautery. The wound was then packed with 2-inch clean moistened normal saline. The surrounding skin was then shaved. The patient was awakened from his anesthetic and sent back to the recovery room once deemed in stable condition. Tomorrow, the wound will be inspected and Instill wound VAC will likely be placed at the bedside. BOB
--- NOTE | 2017-12-03 13:26 | Pharmacy Consult-Antibiotics ---
Pharmacy Consult-Vancomycin - Laboratory Information WBC 9.1 T/MM3 (4.5-11.0) 12/03/17 04:01 BUN 10.0 MG/DL (9-20) 12/03/17 04:01 Creatinine 0.9 mg/dL (0.8-1.5) 12/03/17 04:01 - Consult Information VANCOMYCIN CONSULT: Vancomycin Trough = 12.8 mcg/ml. Today's SCr = 0.9 mg/dl. Will give Vancomycin 1,750 mg IV q6hrs. Trough level ordered for 0730 on 12/04/2017. Will continue to monitor and make adjustments accordingly. Thank you.
[2017-12-03] MEDS: NS 1,000 ML IV SCH ×3 (16:11→23:32)
[2017-12-04] MEDS: PIPERACILLIN/TAZOBACTAM 3.375 GM in NS 100 ML IV SCH ×3 (04:40→16:16)
[2017-12-04] MEDS: NS 1,000 ML IV SCH (06:34)
--- NOTE | 2017-12-04 08:07 | Wound Care Progress Note ---
Wound Center Progress Note: Late Entry: 12/03/[address] a wound vac. Pt premedicated and much more relaxed and was able to turn to an almost pron position. Much easier to visualize wound. Measured wound again 10 x 5 x 5, black foam placed to wound bed with suction moved to upper hip area. Vac drape used for skin protection. Good suction obtained, pt tolerated well.
[2017-12-04 08:53] VITALS: RESP 18; TEMP 97.8
--- NOTE | 2017-12-04 09:03 | Progress Note ---
- Date 12/04/17 Subjective: Tucker is seen this morning in follow up. Wound Vac remains intact and is drainage adequately. He reports mild- moderate pain to buttock region. Denies feeling short of breath or Abdominal pain. Nursing reports small formed stools today. Appetite good today. Remains afebrile. Objective Vital signs: Temperature 97.8 F 12/04/17 08:00 Pulse Rate 80 12/04/17 08:00 Respiratory Rate 18 12/04/17 08:00 Blood Pressure 122/74 12/04/17 08:00 Pulse Oximetry 98 12/04/17 08:00 Height/Weight/BMI: Height 1.98 m Weight 137 kg Body Mass Index 34.4 - Constitutional Present: no acute distress, well nourished, well developed - Routine HEENT Exam Eye: Present: EOMI ENT: Present: mucous membranes moist, dentition normal - Routine Respiratory Exam Present: CTA bilaterally. Absent: wheezes - Routine Cardiovascular Exam Present: RRR, S1, S2. Absent: murmur - Routine Abdominal Exam Present: soft, normoactive bowel sounds, non distended. Absent: tenderness - Routine Extremities Exam Present: normal capillary refill Comments: Post-op aileen wrap to Right knee and RLE - Routine Skin Exam Present: intact, dry, warm Comments: Wound vac intact to buttock cleft - Routine Neurological Exam Present: alert, oriented X3, CN II-XII intact - Routine Lymphatic Exam Lymphatic: Absent: adenopathy - Routine Psychiatric Exam Present: normal affect, normal thought process, cooperative Results - Labs CBC & Chem 7: 12/04/17 04:09 12/04/17 04:09 Microbiology Results: Microbiology 12/02/17 21:20 Surgical Site Gram Stain - Final 12/02/17 21:20 Surgical Site Surgical Culture - Preliminary No Growth After 1 Day Assessment and Plan (1) Infected pilonidal cyst Current visit: Yes Status: Acute Assessment and Plan: Assessment and Plan: (1) Infected pilonidal cyst - failed outpatient treatment - Associated Tachycardia - Vanco and zosyn - Blood Cx pending - Wound Cx growing gm + cocci - S/P I&D last evening by Dr. Fierro - IV fentanyl, dilaudid, morphine, oxycodone and ibuprofen ordered for pain management. (2) Hypernatremia -Likely due to dehydration -continue IVF (3) Status post right knee surgery -Appears stable -On ASA for post op protection-hold for now but resume helen (4) Hx of MRSA infection (5) Prophylaxis -SCDs 12/04/17 Wound Vac intact and draining adequately- Wound care management Appreciate ongoing surgical tx - S/P- I/D of infected pilonidal cyst Vancomycin and Zosyn IV as well as PO Bactrim for antimicrobial coverage. Blood cultures remain negative Hypernatremia is persistent- 147. Will D/C IV fluids as he is eating regular diet LFT's continue to be elevated- may be medication related- Continue to follow Pain control both buttock wound and post-op right knee Case discussed with attending, Dr Mejia - Physician Narrative Physician: Isabel Mejia MD Narrative: Date: 12/04/17 Time: 1043 Mr. Hutton was interviewed and examined by me. He is resting comfortably. He has a wound vac in place in the coccyx area draining nicely. His right knee remains wrapped in AILEEN bandage. He did have more pain with it last night as he does not have his polar willis here. He was given some Ice bags which helped. His coccyx has only mild discomfort when on his side. He denies fevers or chills. No SOA or orthopnea. No CP,no Palp. No N/V/D/C. Did have a BM today. No complaints. Physical Exam: Gen: alert and oriented. NAD Skin: warm and dry, Wound vac in place on buttocks HEENT: NC/AT PERRL, EOMI, Sclera, lids and conjunctiva wnl, MMM, OP clear Neck: supple. No JVD, Carotids 2+ without bruits. Lungs: clear, No rales, rhonchi, wheezes. CV: regular. No murmur, rub or gallop Abd: soft. NT/ND, +BS MS: Trace edema distal right ankle. Right leg in AILEEN wrap. Neuro: No focal deficit Psy: appropriate mood and affect. A/P: (1) Infected pilonidal cyst - failed outpatient treatment - Associated Tachycardia-resolved - Vanco and zosyn - Blood Cx NGTD - Wound Cx Moderate gm + cocci yet NGTD - S/P I&D 12/02/[address] Fierro - Wound vac placed today - Arrangements being made for home wound vac - Possible home today if that can be done. - Oxycodone for pain management, will stop IV pain meds. (2) Hypernatremia -Likely due to dehydration -Encourage po fluid intake. (3) Status post right knee surgery -Appears stable -On ASA for post op protection-resume (4) Hx of MRSA infection (5) Prophylaxis -SCDs Pt was independently interviewed and examined by me. I have reviewed his labs and other notes. Agree with PASSENGER RELATIONS REPRESENTATIVE assessment and plan. Hospital Course Summary Disclaimer: The visit summary below is not to be considered part of the above Progress Note. Hospital Course: Impression Infected pilonidal cyst- failed outpatient treatment Tachycardia Hypernatremia Status post right knee surgery Hx of MRSA infection Hx Asthma as a child Plan Admit patient as an inpatient given worsening pilonidal cyst with drainage despite outpatient treatment. Venous lactate was negative initially. Blood cultures were obtained. Patient was started on Zosyn in the emergency room Will continue with IV Zosyn and vancomycin for antimicrobial coverage. Hx of MRSA infection NPO currently until evaluated by Dr Fierro Consultation placed to Dr Fierro for further surgical evaluation and recommendations. NS at 125 ml/hr for hydration Percocet or Morphine as needed for pain. Will need to also control post-op right knee pain Zofran available as needed for nausea It appears patient is taking aspirin 81 mg daily at home-this may be postoperative anticoagulation. Will resume once ongoing plan is confirmed. SCD for DVT prophylaxis Repeat venous lactate at 1830 as per sepsis protocol, we'll recheck CBC and BMP tomorrow morning to follow blood counts, renal function and electrolytes Will discuss further orders and plan of care with attending, Dr. Mejia At time of discharge medical care will return to primary care provider, PCP in [place] or Orthopedics Dr Gómez Shah 12/04/17 Wound Vac intact and draining adequately- Wound care management Appreciate ongoing surgical tx - S/P- I/D of infected pilonidal cyst Vancomycin and Zosyn IV as well as PO Bactrim for antimicrobial coverage. Blood cultures remain negative Hypernatremia is persistent- 147. Will D/C IV fluids as he is eating regular diet LFT's continue to be elevated- may be medication related- Continue to follow Pain control both buttock wound and post-op right knee Case discussed with attending, Dr Mejia
--- NOTE | 2017-12-04 09:12 | General Surgery Progress Note ---
Subjective Narrative: Wound in place pilonidal area, no sign of leak and foam nicely compressed. He states minimal discomfort when sitting or on his side, a little more pain when on his back. CM working on getting wound vac approved for home. Bactrim DS for 7 days and wound vac change in wound clinic scheduled for January 07 at 1:30. - Vital Signs Last Vital Signs Temp 97.8 F 12/04/17 08:00 Pulse 80 12/04/17 08:00 Resp 18 12/04/17 08:00 BP 122/74 12/04/17 08:00 Pulse Ox 98 12/04/17 08:00 - Laboratory Result Diagrams: 12/04/17 04:09 12/04/17 04:09 - Microbiogy Microbiology 12/02/17 21:20 Surgical Site Gram Stain - Final 12/02/17 21:20 Surgical Site Surgical Culture - Preliminary No Growth After 1 Day - Normal Exam General: awake, alert, oriented, no acute distress Cardiovascular: regular rhythm, regular rate Respiratory: clear bilaterally, no labored breathing Abdominal: soft, non-tender Psychiatric: normal affect Additional Normal Findings: Wound vac with good suction and foam nicely compressed. Assessment and Plan (1) Infected pilonidal cyst Current Visit: Yes Status: Acute Plan: Wound in place pilonidal area, no sign of leak and foam nicely compressed. He states minimal discomfort when sitting or on his side, a little more pain when on his back. CM working on getting wound vac approved for home. Bactrim DS for 7 days and wound vac change in wound clinic scheduled for January 07 at 1:30. He may need narcotic pain med before vac changes. Hospital Course Summary Disclaimer: The visit summary below is not to be considered part of the above Progress Note. Hospital Course: Impression Infected pilonidal cyst- failed outpatient treatment Tachycardia Hypernatremia Status post right knee surgery Hx of MRSA infection Hx Asthma as a child Plan Admit patient as an inpatient given worsening pilonidal cyst with drainage despite outpatient treatment. Venous lactate was negative initially. Blood cultures were obtained. Patient was started on Zosyn in the emergency room Will continue with IV Zosyn and vancomycin for antimicrobial coverage. Hx of MRSA infection NPO currently until evaluated by Dr Fierro Consultation placed to Dr Fierro for further surgical evaluation and recommendations. NS at 125 ml/hr for hydration Percocet or Morphine as needed for pain. Will need to also control post-op right knee pain Zofran available as needed for nausea It appears patient is taking aspirin 81 mg daily at home-this may be postoperative anticoagulation. Will resume once ongoing plan is confirmed. SCD for DVT prophylaxis Repeat venous lactate at 1830 as per sepsis protocol, we'll recheck CBC and BMP tomorrow morning to follow blood counts, renal function and electrolytes Will discuss further orders and plan of care with attending, Dr. Mejia At time of discharge medical care will return to primary care provider, PCP in [place] or Orthopedics Dr Gómez Shah 12-04 Surgery: Wound in place pilonidal area, no sign of leak and foam nicely compressed. He states minimal discomfort when sitting or on his side, a little more pain when on his back. CM working on getting wound vac approved for home. Bactrim DS for 7 days and wound vac change in wound clinic scheduled for January 07 at 1:30.
[2017-12-04] MEDS ORDERED: ASPIRIN 325 MG TABLET PO SCH (11:00)
[2017-12-04] MEDS: Oxycodone/Apap 10/325 1 TAB PO PRN (11:20)
--- NOTE | 2017-12-04 11:22 | Pharmacy Consult-Antibiotics ---
Pharmacy Consult-Vancomycin - Laboratory Information WBC 8.9 T/MM3 (4.5-11.0) 12/04/17 04:09 BUN 12.0 MG/DL (9-20) 12/04/17 04:09 Creatinine 1.0 mg/dL (0.8-1.5) 12/04/17 04:09 Vancomycin Trough 23.77 ug/mL (15-20) H* 12/04/17 07:30 - Consult Information Vancomycin day 3 27 y.o. Male admitted with pilonidal cyst. Patient has a history of MRSA infection. Vancomycin per pharmacy protocol ordered. Goal Vanco trough range= 15 to 20 mcg/ml. 12/04/17 0730 trough= 23.77 mcg/ml Morning Vanco Trough level was high, will adjust dosing to Vancomycin 2,000 mg IV Q8H. Pharmacy will continue to monitor and adjust. Thank you, Tressa Haq [facility]
--- NOTE | 2017-12-04 13:35 | Discharge Summary ---
Discharge Information Date of admission: 12/02/17 14:39 Anticipated date of discharge: 12/04/17 Attending Physician: Isabel Mejia MD Primary care physician: Unknown Consults: 12/02/17 21:50 Wound Vein Clinic Consult [CONS] Routine - Discharge Diagnosis (1) Infected pilonidal cyst Status: Acute Infected pilonidal cyst. Hypernatremia Status post right knee surgery History of MRSA infection - Procedures Procedures: 12/02/17-extensive incision and drainage of pilonidal cystectomy abscess- Dr. Fierro - Laboratory Labs: 12/04/17 04:09 12/04/17 04:09 - Microbiology Microbiology 12/02/17 21:20 Surgical Site Gram Stain - Final 12/02/17 21:20 Surgical Site Surgical Culture - Preliminary No Growth After 1 Day - Radiology Radiology: None - Pathology Chronic, and focal acute inflammation of deep dermal and subcutaneous tissue, compatible with pilonidal cyst. No atypical or neoplasm identified History of Present Illness HPI: Tucker is a 27 yr old male who presents to the emergency room today for evaluation of pilonidal cyst. He initially was seen in the emergency room on Thursday11/28/17 at which time. I&D was performed revealing purulent drainage. He was started on oral Cipro and clindamycin and discharged home. For the next 4 days he continued to have fevers with ongoing drainage. Today he returned to the ER for re-evaluation. On arrival he was found to be tachycardic with a heart rate of 124, temperature 100.0, otherwise unremarkable. Basic labs were obtained CBC overall unremarkable. Chemistry panel reveled sodium of 145, otherwise negative. Venous lactate 1.1. Area of Erythema at the gluteal fold has increased significantly compared to 4 days ago. Given worsening symptoms, failed outpatient treatment, Hospitalist services were contacted and accepted patient for inpatient admission. Dr. Fierro was contacted for further surgical evaluation and recommendations. Patient had surgery to right knee on 11/21/17 under the care of Dr Gómez Shah in [place]. He reports he did have some donor tissue placed however no metal placement. Objective Vital signs: Temperature 97.8 F 12/04/17 08:00 Pulse Rate 80 12/04/17 08:00 Respiratory Rate 18 12/04/17 08:00 Blood Pressure 122/74 12/04/17 08:00 Pulse Oximetry 98 12/04/17 08:00 Height/Weight/BMI: Height 1.98 m Weight 137 kg Body Mass Index 34.4 - Constitutional Present: no acute distress, well nourished, well developed - Routine HEENT Exam Eye: Present: EOMI ENT: Present: mucous membranes moist, dentition normal - Routine Respiratory Exam Present: CTA bilaterally. Absent: wheezes - Routine Cardiovascular Exam Present: RRR, S1, S2. Absent: murmur - Routine Abdominal Exam Present: soft, normoactive bowel sounds, non distended. Absent: tenderness - Routine Exam Comments: Wound vac intact - Routine Extremities Exam Present: normal capillary refill - Routine Skin Exam Present: dry, warm - Routine Neurological Exam Present: alert, oriented X3, CN II-XII intact - Routine Lymphatic Exam Lymphatic: Absent: adenopathy - Routine Psychiatric Exam Present: normal affect Hospital Course This is a general summary of the patient's hospital course. For more details refer to the complete medical record. Hospital course: Impression Infected pilonidal cyst- failed outpatient treatment Tachycardia Hypernatremia Status post right knee surgery Hx of MRSA infection Hx Asthma as a child Plan- 12/02 Admit patient as an inpatient given worsening pilonidal cyst with drainage despite outpatient treatment. Venous lactate was negative initially. Blood cultures were obtained. Patient was started on Zosyn in the emergency room Will continue with IV Zosyn and vancomycin for antimicrobial coverage. Hx of MRSA infection NPO currently until evaluated by Dr Fierro Consultation placed to Dr Fierro for further surgical evaluation and recommendations. NS at 125 ml/hr for hydration Percocet or Morphine as needed for pain. Will need to also control post-op right knee pain Zofran available as needed for nausea It appears patient is taking aspirin 81 mg daily at home-this may be postoperative anticoagulation. Will resume once ongoing plan is confirmed. SCD for DVT prophylaxis Repeat venous lactate at 1830 as per sepsis protocol, we'll recheck CBC and BMP tomorrow morning to follow blood counts, renal function and electrolytes Will discuss further orders and plan of care with attending, Dr. Mejia At time of discharge medical care will return to primary care provider, PCP in [place] or Orthopedics Dr Gómez Shah 12/03/17 (1) Infected pilonidal cyst - failed outpatient treatment - Associated Tachycardia - Vanco and zosyn - Blood Cx pending - Wound Cx growing gm + cocci - S/P I&D last evening by Dr. Fierro - IV fentanyl, dilaudid, morphine, oxycodone and ibuprofen ordered for pain management. (2) Hypernatremia -Likely due to dehydration -continue IVF (3) Status post right knee surgery -Appears stable -On ASA for post op protection-hold for now but resume helen (4) Hx of MRSA infection 12/04/17- Discharge She is seen and examined multiple times prior to discharge. Plan is to discharge with home wound vac. She will be following outpatient wound care for Vac management She is to be placed on oral Bactrim for 7 additional days for antimicrobial coverage. He can continue to utilize oxycodone for pain control Medically stable for discharge Time spent with patient: discharge greater than 30 minutes Resuscitation Status: Full Code Discharge Plan - Discharge Disposition Discharge Date: 12/04/17 Disposition: 01 Discharged Home, Self-Care *Condition: Stable Reason For Visit (Visit label in EMR): Pilonidal Cyst - Discharge Medications *Discharge Medications: New Ibuprofen [Motrin] 800 mg PO Q6H PRN tab PRN Reason: Pain Sulfamethox/Tmp [Bactrim Ds] 1 tab PO BID #14 tab Continue Aspirin 81 mg PO DAILY Oxycodone/Apap 10/325 [Percocet 10/325] 1 - 2 tab PO Q6H PRN #15 tab PRN Reason: Pain Discontinued Clindamycin [Cleocin] 300 mg PO QID Ciprofloxacin [Cipro 500 mg] 500 mg PO BID Augmentin (amoxicillin 875 mg-potassium clavulanate 125 mg) tablet 1 tab PO BID 7 Days #14 tab - Discharge Packet/Instructions *Diet: regular *Activity: Do not drive, operate machinery for 24 hours after surgery or while taking pain medication. No lifting more than 25 pounds for 4 weeks. *Pain Management/Treatment: Follow prescriptions as prescribed *Wound Care: Keep wound vac in place, dry. Call wound clinic if there is a problem with leak or call the [facility] number. *Expected Signs/Symptoms: Tenderness and bruising at incision sites. *Notify Physician if: 1. Call your surgeon if you are having problems relating to your surgery at [phone]. 2. Problems such as: Temp above 101.5 degrees. You develop redness, excessive swelling of the incision, increasing pain or excessive foul smelling drainage. 3. If the office is closed, call [facility] at [phone] and have your Surgeon paged. *During Business Hours Contact: Call your surgeon at at [phone]. *After Business Hours Contact: If the office is closed, call [facility] at [phone] and have your Surgeon paged. *Pending Lab/Results: No Pending Lab - Referrals/Follow Up *Referrals/Follow Up: Christy Archuleta, RN [Registered Nurse] - 12/08/17 1:30 pm (Wound clinic for vac change.) - Patient Handouts - Dismissal Complete Discharge Instructions are:: Complete Physician Narrative - Narrative Physician: Isabel Mejia MD Attestation Narrative: Date: 12/04/17 Time: 1340 the patient was independently examined and interviewed by me. He is feeling better. I have a complete progress note dated same date. His wound VAC for home has been set up. He is stable for discharge to home. He is actually going home to stay with his parents who will help care for him. He will going home on Bactrim as an antibiotic. His physical exam done by me is documented in the progress note dated same date. His assessment and plan is also documented on that note. I have reviewed his labs and notes. Patient was discussed with the PHOTOCOPIER TECHNICIAN. I agree with documented assessment and plan and discharge plan.
--- NOTE | 2017-12-04 13:54 | Progress Note ---
DATE 12/03/2017 FINDINGS Mr. Hutton was seen this evening on rounds. He states that he is feeling well. He denies any fever or chills. He states that overall his pain has improved. OBJECTIVE VITALS: Afebrile. Normotensive. Please refer to EMR. BUTTOCK/LUMBAR REGION: Wound VAC was in place and functioning. Erythema does seem to be subsiding. LABORATORY/RADIOGRAPHIC EVALUATION CBC was obtained and found to be unremarkable today. White count was 9.1. Hemoglobin was 13.0. BMP obtained and found to be without marked abnormalities. From a microbiology standpoint, gram stain obtained last evening revealed many neutrophils, gram-positive cocci and gram-positive rods. Blood cultures are pending. ASSESSMENT 27-year-old gentleman with markedly infected pilonidal cyst disease with associated abscess formation. The patient has made marked clinical improvement. PLAN Earlier today, wound team was able to place a wound VAC. Will discuss case with hospitalist tomorrow but it is my thought that the patient can be discharged perhaps tomorrow. Will reassess tomorrow. The patient will require an additional week to 10 days of additional oral antibiotics upon discharge. BOB
[2017-12-04 16:14] VITALS: BP 142/78; PULSE 86; O2SAT 99
[2017-12-04] MEDS ORDERED: SULFAMETHOXAZOLE/TMP 800 MG/160 MG DS TABLET PO SCH (21:00)
== END 2017-12-04 17:42 | disposition home or self-care (01) | DRG 571 ==
LOC: ED 13:46 → SRG 14:39
PROVIDERS: ADMIT Internal Medicine Cardiovascular Disease; ATTEND Internal Medicine Cardiovascular Disease